=== PATIENT | male | born 1990 | race African-American/Black ===

== ENCOUNTER 2017-01-10 14:10 | Emergency (ER) | payer SELFPAY ==
[~2017-01-10] VITALS: Ht 180.3 cm; Wt 74.8 kg
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
[~2017-01-10 14:10] MED LIST: FLEXERIL10 MG PO; VICODIN 5/500 T1 TAB PO
== END 2017-01-10 16:33 | disposition home or self-care (01) ==
LOC: CFTX 14:10 → CED 14:10 → CFTX 15:54
DX: S33.5XXA Sprain of ligaments of lumbar spine, initial encounter (principal); S60.222A Contusion of left hand, initial encounter; S60.221A Contusion of right hand, initial encounter; M25.561 Pain in right knee; M25.562 Pain in left knee; R51 Headache; I10 Essential (primary) hypertension; F17.200 Nicotine dependence, unspecified, uncomplicated; V43.52XA Car driver injured in collision with other type car in traffic accident, initial encounter
CPT/HCPCS: 29530; 70450; 72100; 73560; 99284